=== PATIENT | male | born 1995 | race Caucasian/White ===

== ENCOUNTER 2017-04-05 11:32 | Emergency (ER) | payer OTHER ==
[2017-04-05] MEDS ORDERED: NS 1,000 ML IV ONE ×2 (11:50)
[2017-04-05] MEDS ORDERED: KETAMINE 100 MG/10 ML SYR IVP ONE (11:51)
--- NOTE | 2017-04-05 11:55 | EDPHY ---
H & P Stated Complaint: States is "Hung over ". Mixed alcohol with xanax last night. Denies SI - Personal History Current Tetanus/Diphtheria Vaccine: Yes Current Tetanus Diphtheria and Acellular Pertussis (TDAP): Yes - Medical/Surgical History Hx Asthma: No Hx Chronic Respiratory Disease: No Hx Diabetes: No Hx Cardiac Disease: No Hx Renal Disease: No Hx Cirrhosis: No Hx Alcoholism: No Hx HIV/AIDS: No Hx Splenectomy or Spleen Trauma: No Other PMH: Recurrent strep throat: scheduled for T&A November 2015. ADHD. depression. anxiety - Social History Smoking Status: Current every day smoker Time Seen by Provider: 04/05/17 11:46 HPI/ROS: CHIEF COMPLAINT: "I'm really hung over" HISTORY OF PRESENT ILLNESS: 21-year-old male who self-described history of cyclic vomiting syndrome, history of daily marijuana use, drank heavy amounts of alcohol last evening in addition to using Xanax recreationally and nitrous oxide recreationally, states that in the middle of the night he awoke with intractable vomiting. Non bilious. Nonprojectile. No abdominal pain. No trauma. No genitalia pain. No diarrhea. Bowel movements normal. No fever or chills. PRIMARY CARE PROVIDER:Formerly [facility] REVIEW OF SYSTEMS: A ten point review of systems was performed and is negative with the exception of the items mentioned in the HPI PAST MEDICAL & SURGICAL HISTORY: No history of abdominal surgeries. 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 SOCIAL HISTORY:positive for daily marijuana use. Heavy alcohol use last evening. PHYSICAL EXAM (Prior to examination, patient consented to physical exam, hands were washed and my usual and customary physical exam procedures followed) 1) GENERAL: Well-developed, well-nourished, alert and oriented. appears anxious. Retching, crawling on the floor of his via examination room vomiting on the floor. 2) HEAD: Normocephalic, atraumatic 3) HEENT: Pupils equal, round, reactive to light bilaterally. Sclera anicteric. Nasopharynx, oropharynx, clear, no lesions. Dry mucous membranes Ears bilaterally with normal tympanic membranes. 4) NECK: Full range of motion, no meningeal signs. 5) LUNGS: Clear auscultation bilaterally, no wheezes, no rhonchi, no retractions. 6) HEART: Regular rate and rhythm, no murmur, no heave, no gallop. 7) ABDOMEN: No guarding, no rebound, no focal tenderness, negative McBurney's, negative Mcdowell's, negative Rovsing's, negative peritoneal sign, I am unable to elicit any abdominal pain on exam 8) MUSCULOSKELETAL: Moving all extremities, no focal areas of tenderness, no obvious trauma. No peripheral edema or discoloration. 9) BACK: No CVA tenderness, no midline vertebral tenderness, no fluctuance, no step-off, no obvious trauma, no visual or palpable abnormality. 10) SKIN: No rash, no petechiae. 11) normal male external genitalia no tenderness no swelling bilateral cremasteric reflex present and brisk bilaterally DIFFERENTIAL DIAGNOSIS: My differential diagnosis includes, but is not limited to, acute appendicitis, acute cholecystitis, bowel obstruction, acute pancreatitis, testicular torsion, gastritis . The patient understands that this diagnosis is provisional and can never be 100% accurate. This is a partial list of diagnoses considered. These considerations are based on history , physical exam, past history and reassessment. (Sherrie Grady) Constitutional: Initial Vital Signs Temperature (C) 36.4 C 04/05/17 11:41 Heart Rate 99 04/05/17 11:41 Respiratory Rate 21 H 04/05/17 11:41 Blood Pressure 130/75 H 04/05/17 11:41 O2 Sat (%) 98 04/05/17 11:41 O2 Delivery Mode Room Air Allergies/Adverse Reactions: No Known Allergies Allergy (Unverified 11/06/15 16:09) Home Medications: Medication Instructions Recorded AZITHROMYCIN [Z-PACK] 500 mg PO DAILY #1 packet 11/06/15 Albuterol [Proventil Inhaler HFA 1 - 2 puffs IH Q4PRN PRN #1 mdi 11/06/15 (*)] Citalopram Hydrobromide [celeXA 10 10 mg PO DAILY 11/06/15 MG] Lisdexamfetamine Dimesylate 10 mg PO 11/06/15 [Vyvanse] OXcarbazepine [Trileptal] 300 mg PO 11/06/15 guanFACINE HCL [Intuniv] 1 mg PO 11/06/15 Promethazine HCl [Phenergan] 25 mg PO Q6 #7 tab 04/05/17 Medical Decision Making ED Course/Re-evaluation: 12:20 p.m.: Re-evaluation, he is sitting up on bed, texting on his phone, appears improved after IV fluids only. He declined IV ketamine. 12:38 p.m.: Re-evaluation, complaining of anxiety. Will administer IV Ativan re-evaluated. Nausea resolved. re-examined his abdomen which is soft no guarding no rebound no McBurney's point pain. 12:58 p.m.: Re-evaluation complaining of continued anxiety. Re-examined abdomen, soft no guarding 1:27 p.m.: Patient has been re-evaluated with serial examinations. Re- examined his abdomen which is soft no guarding no rebound no McBurney's point pain. I think that acute surgical abdominal pathology, acute appendicitis, testicular torsion, less than likely this patient at this time. We discussed his polysubstance abuse and recommended against this in the future. 1:53 p.m.: Patient vomiting complaining of nausea. 2:30 p.m.: Re-evaluation, he is sleeping, easily a woken, he has been tolerating oral intake. Re-examined his abdomen which is soft no guarding or rebound no McBurney's point pain. He would like to be discharged. Recommend against polysubstance abuse in the future. (Sherrie Grady) Other Provider: PHYSICIAN DOCUMENTATION: The patient was evaluated and managed by the Physician Pipeline Operator and myself. I have reviewed the chart and agree with the findings and plan of care as documented. In addition, I examined the patient myself. History confirmed as alcohol including 10 beers, nitrous, Xanax last night with vomiting starting at 3:00 a.m.. Physical findings as follows: Abdomen soft and nontender. Initially was crawling on the floor vomiting but at the time of my evaluation at 1205 is lying comfortably in the bed. I am the secondary supervising physician. (Melo Nicole) - Data Points Laboratory Results: Laboratory Results 04/05/17 11:52 04/05/17 11:52 04/05/17 04/05/17 11:52 11:52 WBC 15.26 10^3/uL H 10^3/uL (3.80-9.50) RBC 5.38 10^6/uL 10^6/uL (4.40-6.38) Hgb 17.1 g/dL g/dL (13.7-17.5) Hct 48.9 % % (40.0-51.0) MCV 90.9 fL fL (81.5-99.8) MCH 31.8 pg pg (27.9-34.1) MCHC 35.0 g/dL g/dL (32.4-36.7) RDW 12.4 % % (11.5-15.2) Plt Count 394 10^3/uL 10^3/uL (150-400) MPV 9.3 fL fL (8.7-11.7) Neut % (Auto) 51.4 % % (39.3-74.2) Lymph % (Auto) 34.7 % % (15.0-45.0) [place] % (Auto) 7.1 % % (4.5-13.0) Eos % (Auto) 5.3 % % (0.6-7.6) Baso % (Auto) 0.9 % % (0.3-1.7) Nucleat RBC Rel Count 0.0 % % (0.0-0.2) Absolute Neuts (auto) 7.84 10^3/uL H 10^3/uL (1.70-6.50) Absolute Lymphs (auto) 5.30 10^3/uL H 10^3/uL (1.00-3.00) Absolute Monos (auto) 1.08 10^3/uL H 10^3/uL (0.30-0.80) Absolute Eos (auto) 0.81 10^3/uL H 10^3/uL (0.03-0.40) Absolute Basos (auto) 0.14 10^3/uL H 10^3/uL (0.02-0.10) Absolute Nucleated RBC 0.00 10^3/uL 10^3/uL (0-0.01) Immature Gran % 0.6 % % (0.0-1.1) Immature Gran # 0.09 10^3/uL 10^3/uL (0.00-0.10) Sodium 143 mEq/L mEq/L (134-144) Potassium 4.3 mEq/L mEq/L (3.5-5.2) Chloride 109 mEq/L mEq/L (97-110) Carbon Dioxide 17 mEq/l L mEq/l (22-31) Anion Gap 17 mEq/L H mEq/L (8-16) BUN 12 mg/dL mg/dL (7-23) Creatinine 0.8 mg/dL mg/dL (0.7-1.3) Estimated GFR > 60 Glucose 97 mg/dL mg/dL (70-100) Calcium 10.3 mg/dL mg/dL (8.5-10.4) Total Bilirubin 0.5 mg/dL mg/dL (0.1-1.4) Conjugated Bilirubin 0.2 mg/dL mg/dL (0.0-0.5) Unconjugated Bilirubin 0.3 mg/dL mg/dL (0.0-1.1) AST 30 IU/L IU/L (17-59) ALT 32 IU/L IU/L (21-72) Alkaline Phosphatase 69 IU/L IU/L (38-126) Total Protein 8.1 g/dL g/dL (6.3-8.2) Albumin 5.2 g/dL H g/dL (3.5-5.0) Lipase 111 IU/L IU/L (23-300) Medications Given: Discontinued Medications Sodium Chloride (Ns) 1,000 mls @ 0 mls/hr IV EDNOW ONE; Wide Open PRN Reason: Protocol Stop: 04/05/17 11:51 Last Admin: 04/05/17 11:54 Dose: 1,000 mls Sodium Chloride (Ns) 1,000 mls @ 0 mls/hr IV EDNOW ONE; Wide Open PRN Reason: Protocol Stop: 04/05/17 11:51 Last Admin: 04/05/17 12:33 Dose: 1,000 mls Ketamine HCl (Ketamine) 13.2 mg 0.2 mg/kg (13.2 mg) IVP EDNOW ONE Stop: 04/05/17 11:52 Last Admin: 04/05/17 12:08 Dose: Not Given Lorazepam (Ativan Injection) 1 mg IVP EDNOW ONE Stop: 04/05/17 12:39 Last Admin: 04/05/17 12:47 Dose: 1 mg Lorazepam (Ativan Injection) 1 mg IVP EDNOW ONE Stop: 04/05/17 12:59 Last Admin: 04/05/17 13:02 Dose: 1 mg Promethazine HCl (Phenergan) 25 mg IVP EDNOW ONE Stop: 04/05/17 13:54 Last Admin: 04/05/17 14:14 Dose: 25 mg Departure - Departure Disposition: Home, Routine, Self-Care Clinical Impression: Nausea & vomiting Qualifiers: Vomiting type: unspecified Vomiting Intractability: non-intractable Qualified Code(s): R11.2 - Nausea with vomiting, unspecified Condition: Good Instructions: Acute Nausea and Vomiting (ED) Referrals: Damian Clay MD [[facility] Primary Care Provider] - 04/08/17 Prescriptions: Promethazine HCl [Phenergan] 25 mg PO Q6 #7 tab
[2017-04-05 12:05] LABS: % IMMATURE GRANULYOCYTES 0.6 % (0.0-1.1); ABSOLUTE IMMATURE GRANULOCYTES 0.09 10^3/uL (0.00-0.10); ADD DIFF? NO; ADD MORPH? NO; ADD SCAN? NO; ATYPICAL LYMPHOCYTE FLAG 10 (0-99); FRAGMENT RBC FLAG 0 (0-99); HEMATOCRIT 48.9 % (40.0-51.0); HEMOGLOBIN 17.1 g/dL (13.7-17.5); LEFT SHIFT FLG 0 (0-99); LIPEMIA HEMOLYSIS FLAG 90 (0-99); MEAN CELL HEMOGLOBIN 31.8 pg (27.9-34.1); MEAN CELL VOLUME 90.9 fL (81.5-99.8); MEAN PLATELET VOLUME 9.3 fL (8.7-11.7); PLATELET CLUMPS FLAG 0 (0-99); PLATELET COUNT 394 10^3/uL (150-400); RED BLOOD CELL COUNT 5.38 10^6/uL (4.40-6.38); RED CELL DISTRIBUTION WIDTH 12.4 % (11.5-15.2)
[2017-04-05 12:29] LABS: ALANINE AMINOTRANSFERASE 32 IU/L (21-72); ALBUMIN 5.2 g/dL (3.5-5.0); ALKALINE PHOSPHATASE 69 IU/L (38-126); ASPARTATE AMINOTRANSFERASE 30 IU/L (17-59); BILIRUBIN,TOTAL 0.5 mg/dL (0.1-1.4); BILIRUBIN-CONJUGATED 0.2 mg/dL (0.0-0.5); BILIRUBIN-UNCONJUGATED 0.3 mg/dL (0.0-1.1); CALCIUM 10.3 mg/dL (8.5-10.4); CARBON DIOXIDE 17 mEq/l (22-31); CHLORIDE 109 mEq/L (97-110); CREATININE 0.8 mg/dL (0.7-1.3); GLOMERULAR FILTRATION RATE > 60; GLUCOSE 97 mg/dL (70-100); SODIUM 143 mEq/L (134-144); TOTAL PROTEIN 8.1 g/dL (6.3-8.2)
[2017-04-05] MEDS ORDERED: LORazepam 2 MG/ML INJ IVP ONE ×2 (12:38→12:58)
[2017-04-05 12:43] LABS: ANION GAP 17 mEq/L (8-16); POTASSIUM 4.3 mEq/L (3.5-5.2)
[2017-04-05] MEDS ORDERED: PROMETHAZINE HCL 25 MG/ML INJ IVP ONE (13:53)
[2017-04-05] MEDS ORDERED: NS 50 ML BAG IV ONE (14:08)
[2017-04-05 14:59] VITALS: BP 148/90; PULSE 75; RESP 16; TEMP 97.9; O2SAT 95
== END 2017-04-05 14:59 | disposition home or self-care (01) ==
PROC: 3E0337Z Introduction of Electrolytic and Water Balance Substance into Peripheral Vein, Percutaneous Approach (ICD-10-PCS; principal; 2017-04-05)
DX: R11.2 Nausea with vomiting, unspecified (principal); E86.9 Volume depletion, unspecified; F17.200 Nicotine dependence, unspecified, uncomplicated
CPT/HCPCS: 96374; J2060; J2550

== ENCOUNTER 2018-11-30 07:34 | Emergency (ER) | payer BC, OTHER ==
[2018-11-30] MEDS ORDERED: ONDANSETRON 4 MG/2 ML VIAL ONE (07:50)
[2018-11-30] MEDS ORDERED: ONDANSETRON 4 MG/2 ML VIAL IVP ONE ×2 (07:51→08:25)
[2018-11-30] MEDS ORDERED: NS 1,000 ML IV ONE ×3 (07:51→09:21)
--- NOTE | 2018-11-30 08:05 | EDPHY ---
H & P Time Seen by Provider: 11/30/18 07:46 HPI/ROS: CHIEF COMPLAINT: Vomiting HISTORY OF PRESENT ILLNESS: Patient is a 22-year-old male who presents to the emergency department vomiting since last evening. Patient states "I drank too much." Patient was drinking alcohol heavily last evening. His last drink was around midnight. He started to vomit around 1:30 a.m.. He has been vomiting throughout the night. No bloody emesis. No abdominal pain. No fevers or chills. Patient states he has had previous episodes in the past when he drinks too much. REVIEW OF SYSTEMS: 10 systems were reveiwed and are negative with the exception of the elements mentioned in the history of present illness. Past Medical/Surgical History: Includes strep pharyngitis, attention deficit hyperactivity disorder, depression , anxiety Social history: Includes alcohol Smoking Status: Current every day smoker Physical Exam: Vitals noted GENERAL: No acute distress, alert. HEENT: Eyes normal to inspection, normal pharynx, mildly dry mucous membranes. NECK: Normal, supple. RESPIRATORY: Clear to auscultation bilaterally, no rales, rhonchi or wheezing. CVS: Regular rate and rhythm, no rubs, murmurs, or gallops. ABDOMEN: Soft, nontender, nondistended, no organomegaly. Benign BACK: Normal to inspection, no CVA tenderness. SKIN: Normal color, no rash, warm, dry. No pallor. EXTREMITIES: No pedal edema, no calf tenderness, no Homans sign or cords, no joint swelling. NEURO/PSYCH: Alert and oriented, normal mood and affect, normal motor sensory exam. Constitutional: Initial Vital Signs Temperature (C) 37 C 11/30/18 07:36 Heart Rate 85 11/30/18 07:36 Respiratory Rate 17 11/30/18 07:36 Blood Pressure 145/95 H 11/30/18 07:36 O2 Sat (%) 97 11/30/18 07:36 O2 Delivery Mode Room Air Allergies/Adverse Reactions: No Known Allergies Allergy (Verified 11/30/18 07:35) Home Medications: Medication Instructions Recorded Albuterol [Proventil Inhaler HFA 1 - 2 puffs IH Q4PRN PRN #1 mdi 11/06/15 (*)] Citalopram Hydrobromide [celeXA 10 10 mg PO DAILY 11/06/15 MG] Lisdexamfetamine Dimesylate 10 mg PO 11/06/15 [Vyvanse] OXcarbazepine [Trileptal] 300 mg PO 11/06/15 guanFACINE HCL [Intuniv] 1 mg PO 11/06/15 Ondansetron Odt [Zofran Odt 4 mg 4 mg PO Q4PRN PRN #7 tab 11/30/18 (*)] Medical Decision Making ED Course/Re-evaluation: In the emergency department I discussed possible etiologies with the patient. I answered all his questions. An IV was placed. Patient given Zofran 4 mg IV. Patient was given normal saline 1 L IV for hydration. [place] [address]. Patient's chemistry panel was remarkable for an elevated anion gap of 17 and a low CO2 of 18. . The lipase was elevated at 753. Patient continued to have episodes of nausea and vomiting. He was given Reglan 10 mg IV and Pepcid 20 mg IV. Patient continued to feel nauseated was having dry heaving. He requested Ativan. Ativan 1 mg IV was given. Patient was given normal saline 1 L IV for hydration. 1010: Patient is feeling much better. He has no abdominal pain. No nausea or vomiting. On repeat exam his abdomen was soft, nontender and nondistended. Patient was given warnings prior to leaving. He will return worsening symptoms. Differential Diagnosis: My differential includes but is not limited to alcohol abuse, dehydration, electrolyte abnormality, sugar abnormality, surgical abdomen, appendicitis, cholecystitis, pancreatitis - Data Points Laboratory Results: Laboratory Results 11/30/18 07:45 11/30/18 07:45 11/30/18 11/30/18 07:45 07:45 WBC 16.07 10^3/uL H 10^3/uL (3.80-9.50) RBC 5.32 10^6/uL 10^6/uL (4.40-6.38) Hgb 16.5 g/dL g/dL (13.7-17.5) Hct 47.7 % % (40.0-51.0) MCV 89.7 fL fL (81.5-99.8) MCH 31.0 pg pg (27.9-34.1) MCHC 34.6 g/dL g/dL (32.4-36.7) RDW 12.7 % % (11.5-15.2) Plt Count 324 10^3/uL 10^3/uL (150-400) MPV 9.4 fL fL (8.7-11.7) Neut % (Auto) 49.2 % % (39.3-74.2) Lymph % (Auto) 39.9 % % (15.0-45.0) [place] % (Auto) 7.7 % % (4.5-13.0) Eos % (Auto) 2.0 % % (0.6-7.6) Baso % (Auto) 0.6 % % (0.3-1.7) Nucleat RBC Rel Count 0.0 % % (0.0-0.2) Absolute Neuts (auto) 7.91 10^3/uL H 10^3/uL (1.70-6.50) Absolute Lymphs (auto) 6.41 10^3/uL H 10^3/uL (1.00-3.00) Absolute Monos (auto) 1.24 10^3/uL H 10^3/uL (0.30-0.80) Absolute Eos (auto) 0.32 10^3/uL 10^3/uL (0.03-0.40) Absolute Basos (auto) 0.10 10^3/uL 10^3/uL (0.02-0.10) Absolute Nucleated RBC 0.00 10^3/uL 10^3/uL (0-0.01) Immature Gran % 0.6 % % (0.0-1.1) Immature Gran # 0.10 10^3/uL 10^3/uL (0.00-0.10) RBC/WBC/PLT Morphology TNP Platelet Estimate TNP Sodium 143 mEq/L mEq/L (135-145) Potassium 4.1 mEq/L mEq/L (3.5-5.2) Chloride 108 mEq/L mEq/L (97-110) Carbon Dioxide 18 mEq/l L mEq/l (22-31) Anion Gap 17 mEq/L H mEq/L (6-14) BUN 14 mg/dL mg/dL (7-23) Creatinine 0.8 mg/dL mg/dL (0.7-1.3) Estimated GFR > 60 Glucose 104 mg/dL H mg/dL (70-100) Calcium 9.8 mg/dL mg/dL (8.5-10.4) Total Bilirubin 0.4 mg/dL mg/dL (0.1-1.4) Conjugated Bilirubin 0.3 mg/dL mg/dL (0.0-0.5) Unconjugated Bilirubin 0.1 mg/dL mg/dL (0.0-1.1) AST 39 IU/L IU/L (17-59) ALT 53 IU/L IU/L (21-72) Alkaline Phosphatase 59 IU/L IU/L (38-126) Total Protein 7.7 g/dL g/dL (6.3-8.2) Albumin 5.2 g/dL H g/dL (3.5-5.0) Lipase 753 IU/L H IU/L (23-300) Medications Given: Discontinued Medications Sodium Chloride (Ns) 1,000 mls @ 0 mls/hr IV EDNOW ONE; Wide Open PRN Reason: Protocol Stop: 11/30/18 07:52 Last Admin: 11/30/18 07:55 Dose: 1,000 mls Sodium Chloride (Ns) 1,000 mls @ 0 mls/hr IV EDNOW ONE; Wide Open PRN Reason: Protocol Stop: 11/30/18 08:26 Last Admin: 11/30/18 08:29 Dose: 1,000 mls Famotidine/Sodium Chloride (Pepcid 20 Mg (Premix)) 50 mls @ 200 mls/hr IV EDNOW ONE Stop: 11/30/18 09:12 Last Admin: 11/30/18 09:04 Dose: 50 mls Sodium Chloride (Ns) 1,000 mls @ 0 mls/hr IV EDNOW ONE; Wide Open PRN Reason: Protocol Stop: 11/30/18 09:22 Last Admin: 11/30/18 09:26 Dose: 1,000 mls Lorazepam (Ativan Injection) 1 mg IVP EDNOW ONE Stop: 11/30/18 09:22 Last Admin: 11/30/18 09:26 Dose: 1 mg Metoclopramide HCl (Reglan Injection) 10 mg IVP EDNOW ONE Stop: 11/30/18 09:02 Last Admin: 11/30/18 09:04 Dose: 10 mg Ondansetron HCl (Zofran) 4 mg IVP EDNOW ONE Stop: 11/30/18 07:52 Last Admin: 11/30/18 07:55 Dose: 4 mg Ondansetron HCl (Zofran) 4 mg IVP EDNOW ONE Stop: 11/30/18 08:26 Last Admin: 11/30/18 08:29 Dose: 4 mg Departure - Departure Disposition: Home, Routine, Self-Care Clinical Impression: Vomiting Qualifiers: Vomiting type: unspecified Vomiting Intractability: non-intractable Nausea presence: with nausea Qualified Code(s): R11.2 - Nausea with vomiting, unspecified Condition: Good Instructions: Acute Nausea and Vomiting (ED) Additional Instructions: Return with increasing abdominal pain, fever, persistent vomiting or any other concerns. Referrals: [facility] Rankin,. [Clinic] - 5-7 days, if not improved Prescriptions: Ondansetron Odt [Zofran Odt 4 mg (*)] 4 mg PO Q4PRN PRN #7 tab PRN Reason: For Nausea & Vomiting
[2018-11-30 08:10] LABS: PLATELET COUNT 324 10^3/uL (150-400)
[2018-11-30] MEDS ORDERED: FAMOTIDINE 20 MG/NACL 50 ML IV ONE (08:58)
[2018-11-30] MEDS ORDERED: METOCLOPRAMIDE 10 MG/2 ML VIAL IVP ONE (09:01)
[2018-11-30] MEDS ORDERED: LORazepam 2 MG/ML INJ IVP ONE (09:21)
[2018-11-30 10:31] VITALS: BP 109/56
== END 2018-11-30 10:32 | disposition home or self-care (01) ==
DX: R11.2 Nausea with vomiting, unspecified (principal); F10.920 Alcohol use, unspecified with intoxication, uncomplicated; F17.200 Nicotine dependence, unspecified, uncomplicated; E86.9 Volume depletion, unspecified
CPT/HCPCS: 96365; J2060; J2405; J2765